=== PATIENT | male | born 1935 | race African-American/Black ===

== ENCOUNTER 2017-12-12 11:08 | Emergency (ER) | payer OTHER, MEDICAID ==
[~2017-12-12] VITALS: Ht 182.9 cm; Wt 77.0 kg
[2017-12-12 12:27] LABS: BASOPHILS % 0.6 % (0.0-2.0); EOSINOPHILS % 4.9 % (0.0-5.0); HEMATOCRIT. 39.8 % (42.0-52.0); HEMOGLOBIN. 12.5 g/dL (14.0-18.0); LYMPHOCYTES % 20.8 % (20.0-50.0); MEAN CORPUSCULAR HEMOGLOBIN 24.3 pg (28.0-32.0); MEAN CORPUSCULAR VOLUME 77.3 fL (80.0-94.0); MEAN PLATELET VOLUME 8.3 fl (7.4-10.4); MONOCYTES % 11.7 % (2.0-8.0); PLATELET 182 x1000/uL (130-400); RED BLOOD CELL COUNT 5.15 mill/uL (4.7-6.1)
[2017-12-12 12:35] LABS: INR 1.1; PROTHROMBIN TIME 11.7 sec (9.4-11.6)
[2017-12-12 12:40] LABS: AMMONIA < 25 uMol/L (<32)
[2017-12-12 12:44] LABS: CARBON DIOXIDE 35 mEq/L (21-32); CHLORIDE 106 mEq/L (98-107); CREATINE KINASE 71 IU/L (39-308); ETHANOL BLOOD < 10 mg/dL; TROPONIN I < 0.02 ng/mL (0.00-0.04)
[2017-12-12 15:26] VITALS: BP 137/80
== END 2017-12-12 15:38 | disposition home or self-care (01) ==
LOC: ER 11:20 → ENRESERV 15:15 → CANRESERV 15:15 → CANBEDREQ 15:29 → ER 15:38
DX: F02.80 Dementia in other diseases classified elsewhere, unspecified severity, without behavioral disturbance, psychotic disturbance, mood disturbance, and anxiety (principal); G30.9 Alzheimer's disease, unspecified; J44.9 Chronic obstructive pulmonary disease, unspecified
CPT/HCPCS: 36415; 70450; 71045; 80053; 82140; 82550; 83605; 84443; 84484; 85025; 85610; 93005; 99285; G0482